=== PATIENT | male | born 1960 | race Caucasian/White ===

== ENCOUNTER → 2022-09-20 | Outpatient (CLI) | payer OTHER ==
--- NOTE | 2022-09-20 19:52 | Diagnostic Imaging Report ---
Procedure: CT head and neck without contrast. Technique: Contiguous axial images were obtained from the skull base through the vertex. Noncontrast axial images were then obtained of the soft tissue of the neck. Auto Exposure Controls were utilized during the CT exam to meet ALARA standards for radiation dose reduction. Date: September 20, 2022. Indication: 62-year-old male, chronic right ear infection. Right ear feels closed. Head and neck pain. Comparison: None available. Findings: The right external auditory canal is patent. There is mild partial opacification within the right mastoid air cells without loss of normal air cell septa. The right middle ear is well aerated. The left external auditory canal is also patent. The left middle ear is well aerated. The left mastoid air cells are well aerated. There is mild mucosal thickening of the left maxillary sinus. There is no air-fluid level in the paranasal sinuses. There is no identified skull fracture. There is no abnormal soft tissue attenuation in the region of the right or left ear. The ventricles and additional CSF spaces are within normal limits in size and configuration for patient age. There is no abnormal extra-axial fluid collection. There is no evidence of acute intracranial hemorrhage. There is no mass effect or midline shift. The bilateral parotid and submandibular glands are unremarkable in appearance. Unremarkable evaluation of the thyroid. There is no identified mucosal or submucosal mass along the airway. There is no narrowing of the airway. There is no identified neck mass. There is no identified abnormally enlarged cervical lymph node specifically meeting CT size criteria for adenopathy. Carotid vascular calcifications are noted. There are advanced facet degenerative changes on the right at C3-C4 and C4-C5. There are disc degenerative changes of the cervical spine at multiple levels with moderate disc height loss at C6-C7. There are posterior disc aspect complexes at least at C5-C6 and C6-C7. CT is limited for assessment of disc pathology as well as additional non-bony causes of pathology in the spinal canal. There is no identified acute fracture of the cervical spine. There is no aggressive bone lesion. The visualized portions of the lung apices are clear. Impression: 1. Patent bilateral external auditory canals. No identified soft tissue mass in the region of the right or left ear. 2. Nonspecific opacification within the right mastoid air cells without evidence of coalescent mastoiditis. 3. The middle ears are well aerated bilaterally. 4. No acute intracranial abnormality. 5. Additional CT neck assessment without contrast is unremarkable. Dictated by: Dictated on workstation # [id number]
== END ==
LOC: RAD 17:06
PROVIDERS: ATTEND Hospitalist
DX: H65.23 Chronic serous otitis media, bilateral (principal)
CPT/HCPCS: 70450; 70490